=== PATIENT | female | born 1935 | race African-American/Black ===

== ENCOUNTER 2019-06-05 20:52 | Emergency (ER) | payer OTHER ==
[~2019-06-05] VITALS: Ht 152.4 cm; Wt 48.0 kg
[2019-06-05] MEDS ORDERED: ONDANSETRON HCL 4MG/2ML INJ IV STA (22:03)
[2019-06-05] MEDS ORDERED: HYDRALAZINE 20MG/ML VIAL IV ONE (22:15)
[2019-06-05 23:33] LABS: BASOPHILS % 0.7 % (0.0-2.0); EOSINOPHILS % 0.6 % (0.0-5.0); HEMOGLOBIN. 12.5 g/dL (12.0-16.0); LYMPHOCYTES % 40.1 % (20.0-50.0); MEAN CORPUSCULAR HEMOGLOBIN 27.9 pg (28.0-32.0); MEAN CORPUSCULAR VOLUME 85.1 fL (81.0-99.0); MEAN PLATELET VOLUME 9.2 fl (7.4-10.4); MONOCYTES % 10.9 % (2.0-8.0); NEUTROPHILS % 47.7 % (40.0-76.0); PLATELET 115 x1000/uL (130-400); RED BLOOD CELL COUNT 4.46 mill/uL (4.2-5.4)
[2019-06-05 23:38] LABS: CHLORIDE 100 mEq/L (98-107)
[2019-06-05 23:40] LABS: PARTIAL THROMBOPLASTIN TIME 27.1 sec (23.4-31.0); PROTHROMBIN TIME 10.5 sec (9.6-11.0)
[2019-06-05 23:42] LABS: ETHANOL BLOOD < 10 mg/dL
[2019-06-05] MEDS ORDERED: ASPIRIN 81MG TABLET PO ONE (23:45)
[2019-06-06] MEDS ORDERED: SODIUM CHLORIDE 0.9% 500 ML IV ONE (00:14)
[2019-06-06 02:27] VITALS: BP 121/50
== END 2019-06-06 03:56 | disposition home or self-care (01) ==
LOC: ER 20:52 → EDBD 20:52 → ER 06-06 03:56 → CANBEDREQ 06-06 05:21
DX: I63.9 Cerebral infarction, unspecified (principal); I10 Essential (primary) hypertension
CPT/HCPCS: 36415; 70450; 71045; 80053; 80320; 82962; 83690; 83880; 84484; 85025; 85610; 85730; 93005; 96374; 96375; 99284; J0360; J2405; J7040; G0480